=== PATIENT | male | born 1990 | race Two or more races ===

== ENCOUNTER 2021-06-02 11:47 | Emergency (ER) | payer OTHER ==
[~2021-06-02] VITALS: Ht 188 cm; Wt 99.8 kg
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
[2021-06-02] MEDS ORDERED: BACITRACIN ZINC OINT PACKET 1 EA PACKET TP ONE (12:30)
--- NOTE | 2021-06-02 13:10 | NUR ---
ER PHLEB AT BEDSIDE FOR BLOOD DRAW. PT IS UNCOOPERATIVE AND AGGRESSIVE. UNABLE TO OBTAIN BLOOD SPECIMEN.
[2021-06-02 15:53] LABS: BASOPHILS % (AUTO) 0.4 % (0.0-2.0); EOSINOPHILS % (AUTO) 1.8 % (0.0-6.0); HEMATOCRIT 38 % (39-51); LYMPHOCYTES # (AUTO) 1.3 K/uL (0.8-4.8); MEAN CORPUSCULAR HGB CONC 34 g/dl (31.0-36.0); MEAN CORPUSCULAR VOLUME 85 fL (80-96); MONOCYTES % (AUTO) 10.7 % (2.0-12.0); NEUTROPHILS # (AUTO) 6.8 K/uL (1.8-8.9); NEUTROPHILS % (AUTO) 73.1 % (43.0-81.0); PLATELET COUNT (AUTO) 337 K/uL (150-450); RED BLOOD CELL COUNT(AUTO) 4.49 MIL/uL (4.5-6.0); WHITE BLOOD COUNT (AUTO) 9.3 K/uL (4.3-11.0)
[2021-06-02 16:07] LABS: CALCIUM, SERUM 8.1 mg/dL (8.5-10.1); CARBON DIOXIDE 25 mmol/L (21-32); CHLORIDE 105 mmol/L (98-107); CREATININE 0.9 mg/dL (0.6-1.3); GLUCOSE 85 mg/dL (74-106); POTASSIUM 3.2 mmol/L (3.5-5.1); SODIUM SERUM 141 mmol/L (136-145); UREA NITROGEN, BLOOD 14 mg/dL (7-18)
[2021-06-02 16:11] LABS: ALANINE AMINOTRANSFERASE 121 U/L (12-78); ALBUMIN 3.6 g/dL (3.4-5.0); ALCOHOL, BLOOD < 3 mg/dL (0-0); ALKALINE PHOSPHATASE 56 U/L (46-116); ASPARTATE AMINOTRANSFERASE 187 U/L (15-37); BILIRUBIN,DIRECT 0.2 mg/dL (0.0-0.2); BILIRUBIN,TOTAL 0.5 mg/dL (0.2-1.0); TOTAL PROTEIN, SERUM 6.8 g/dL (6.4-8.2)
--- NOTE | 2021-06-02 16:11 | NUR ---
PT ASLEEP, EASILY AWAKEN BY VERBAL STIMULI, CALM & COOPERATIVE. DENIES CP, SOB, DIZZINESS, N/V AT THIS TIME. SITTER AT BS. WILL CONT TO MONITOR.
[2021-06-02 16:16] LABS: ACETAMINOPHEN < 2 ug/ml (10-30)
--- NOTE | 2021-06-02 16:45 | NUR ---
CALLED [facility] ASKED TO NEXT CLINICIAN
--- NOTE | 2021-06-02 17:27 | NUR ---
CALLED MIGUEL KOEHLER [phone]
--- NOTE | 2021-06-02 20:44 | NUR ---
Patient discharged to home in stable condition. Written and verbal after care instructions given. Patient verbalizes understanding of instruction.
[2021-06-02 20:59] VITALS: BP 118/73
== END 2021-06-02 21:00 | disposition home or self-care (01) ==
LOC: ER 11:55
DX: F91.1 Conduct disorder, childhood-onset type (principal); R45.1 Restlessness and agitation; M79.671 Pain in right foot
CPT/HCPCS: 36415; 80048-TC; 80076-TC; 85025-TC; G0480